=== PATIENT | male | born 2000 | race African-American/Black ===

== ENCOUNTER 2024-04-12 11:24 | Day surgery (SDC) | payer OTHER ==
[~2024-04-12] VITALS: Ht 172.7 cm; Wt 98.0 kg
[~2024-04-12 11:24] MED LIST: TRANEXAMIC ACID 100 MG/ML 10ML VIAL IV ONE
[2024-04-12] MEDS ORDERED: NS (Normal Saline) 0.9% 1,000 ML IV SCH ×2 (13:00→15:20)
[2024-04-12] MEDS: fentaNYL 100 MCG/2 ML INJECTION IV PRN (13:15)
[2024-04-12] MEDS: MIDAZOLAM INJ 2MG/2ML VIAL IV PRN (13:15)
[2024-04-12] MEDS: ROPIvacaine 0.5% 30ML VIAL PN ONE (13:20)
[2024-04-12] MEDS: dexAMETHasone 10MG/1ML VIAL PRES.FREE PN ONE (13:20)
[2024-04-12] MEDS: LIDOCAINE 1% SDV 5ML VIAL PN ONE (13:20)
[2024-04-12] MEDS ORDERED: propofoL 200 MG/20 ML VIAL As Ordered ONE (13:36)
[2024-04-12] MEDS ORDERED: ROCURONIUM BROMIDE 50MG/5ML VIAL As Ordered ONE (13:36)
[2024-04-12] MEDS ORDERED: fentaNYL 100 MCG/2 ML INJECTION As Ordered ONE (13:36)
[2024-04-12] MEDS ORDERED: LIDOCAINE 2% 100MG/5ML SDV (FOR ANES.) As Ordered ONE (13:36)
[2024-04-12] MEDS ORDERED: ePHEDrine SULFATE 25 MG/5 ML(5MG/ML) SYRINGE As Ordered ONE (14:10)
[2024-04-12] MEDS ORDERED: PHENYLephrine 500MCG 5ML (100MCG/ML) SYRINGE As Ordered ONE (14:10)
[2024-04-12] MEDS: ceFAZolin SOD 2 GM in IV 1 EA IV ONE (14:11)
[2024-04-12] MEDS: TRANEXAMIC ACID 100 MG/ML 10ML VIAL As Ordered ONE (14:15)
[2024-04-12] MEDS ORDERED: ACETAMINOPHEN 1000MG/100ML IV BAG As Ordered ONE (14:30)
[2024-04-12] MEDS ORDERED: ONDANSETRON 4MG 2ML VIAL As Ordered ONE (14:41)
[2024-04-12] MEDS ORDERED: SUGAMMADEX SODIUM 500 MG/5 ML VIAL (BRIDION) As Ordered ONE (14:57)
[2024-04-12] MEDS ORDERED: HYDROMORPHONE HCL 0.5 MG/ 0.5 ML SYRINGE IV PRN (15:20)
[2024-04-12] MEDS ORDERED: fentaNYL 100 MCG/2 ML INJECTION IV PRN (15:20)
[2024-04-12] MEDS ORDERED: ONDANSETRON 4MG 2ML VIAL IV PRN (15:20)
[2024-04-12] MEDS ORDERED: oxyCODONE 5MG TAB PO PRN (15:20)
[2024-04-12 16:50] VITALS: BP 137/74; TEMP 97.7; O2SAT 100
== END 2024-04-12 16:52 | disposition home or self-care (01) ==
LOC: M SDC 11:24
PROVIDERS: ATTEND Orthopaedic Surgery
DX: S92.351A Displaced fracture of fifth metatarsal bone, right foot, initial encounter for closed fracture (principal); X50.1XXA Overexertion from prolonged static or awkward postures, initial encounter; Y92.139 Unspecified place military base as the place of occurrence of the external cause; Y93.01 Activity, walking, marching and hiking; Y99.1 Military activity
CPT/HCPCS: 28476; 76000; C1713; J0131; J0690; J1100; J2250; J2371; J2405; J3010